=== PATIENT | female | born 1995 | race Caucasian/White ===

== ENCOUNTER → 2019-01-22 10:43 | Outpatient (CLI) | payer OTHER, SELFPAY ==
[2014-11-17 15:18] VITALS: BMI 22.4
[2019-01-22 11:18] LABS: AST(SGOT) 13 U/L (15-37); Alanine Aminotransfer ALT/SGPT 20 U/L (13-56); Anion Gap 7 (5-15); BUN 13 mg/dL (7-18); Calcium,Total 8.7 mg/dL (8.5-10.1); Chloride 105 mmol/L (98-107); Creatinine, Serum 0.72 mg/dL (0.55-1.02); EST Glomerular Filtration Rate 105 mL/min (>60); Est Glom Filt Rate - Afr Amer 127 mL/min (>60); Glucose 88 mg/dL (74-106); Potassium 3.9 mmol/L (3.5-5.1); Sodium Level 140 mmol/L (136-145)
[2019-01-22 11:40] LABS: hCG Titer Quant., Serum 198 mIU/mL (1-3)
== END ==
LOC: LAB.FUTURE 10:53 → LAB 01-23 07:21
PROVIDERS: Family Provider Internal Medicine; PCP Internal Medicine; Referring Provider Obstetrics & Gynecology; Visit Provider Obstetrics & Gynecology
DX: O02.1 Missed abortion (principal)
CPT/HCPCS: 36415; 80048; 84450; 84460; 84702; 86900; 86901

== ENCOUNTER 2022-09-27 07:00 | Inpatient (IN) | payer BC, SELFPAY ==
[2022-09-27] VITALS (32 sets, daily range): BP systolic 115–144; BP diastolic 62–96; PULSE 77–155; RESP 15–16; TEMP 36.3–37.4; O2SAT 96–99; BMI 31.6
[2022-09-27] MEDS: Lactated Ringers 1,000 ML 50 ML IV (07:25)
[2022-09-27 07:41] LABS: Absolute Lymphocyte Count 2.05 X10^3/uL (0.83-4.51); Absolute Neutrophil Count 8.7 X10^3/uL (2.0-7.7); Basophil# 0.03 X10^3/uL; Basophil% 0.3 % (0-1); Eosinophil# 0.13 X10^3/uL; Eosinophils% 1.1 % (0-5); Hematocrit 39.1 % (37-47); Lymphocyte # 2.05 X10^3/ul (0.83-4.51); Lymphocyte % 17.7 % (19-41); Mean Corp Hgb Conc 33.2 g/dL (32-36); Mean Corpuscular Hgb 29.7 pg (27.0-32.0); Mean Corpuscular Volume 89.3 fL (81-99); Monocyte# 0.65 X10^3/uL; Monocyte% 5.6 % (0-10); NRBC Flagged by Analyzer 0 % (0-5); Neutrophil # 8.67 X10^3/uL (2.7-7.7); Neutrophil % 74.6 % (47-70); Platelet Count 218 K/mm3 (150-450); RBC Distribution Width CV 12.4 % (11.6-14.6); RBC Distribution Width SD 40.5 fl (35.1-43.9); Red Blood Count 4.38 M/mm3 (4.2-5.4); White Blood Count 11.6 K/mm3 (4.4-11.0)
[2022-09-27] MEDS: Oxytocin 15 Units/NS 250ml 15 UNITS/250 ML IV.SOLN 2 UNITS IV (07:45)
[2022-09-27 08:33] LABS: Syphilis Antibodies Non-reactive
[2022-09-27] MEDS: LACTATED RINGERS 500 ML 999 ML IV (08:35)
--- NOTE | 2022-09-27 08:36 | HP.PCM.OB_ITS ---
HPI - General General Date of Admission: 09/27/22 HPI Narrative CATHI ALEGRE, is a 27 F at 40.1 weeks gestation who presents for elective induction of labor. has been uncomplicated. History of anxiety and depression and is Rubella non- immune. Maternal Data Information RICA Calculator Estimated Delivery Date Method Current WG Current Estimate 09/26/22 Manual 40w 1d Final RICA: 09/26/22 [facility] Medical History (Updated 09/27/22 @ 08:39 by Suzette Grove CNM) Anxiety Depression hemorrhage Home Medications citalopram 40 mg tablet mg PO DAILY anxiety/depression 09/27/22 [History Last Taken 09/26/22 20:00 40 mg] pantoprazole 40 mg tablet,delayed release mg PO DAILY acid reflux 09/27/22 [History Last Taken 09/27/22 05:00 40 mg] vit no.95-ferrous fumarate 28 mg-folic acid 800 mcg tablet () 1 tab PO DAILY 09/27/22 [History Last Taken 09/26/22 11:00 1 TAB] Allergy/AdvReac Type Severity Reaction Status Date / Time No Known Allergies Allergy Verified 09/27/22 07:54 Surgical History History of wisdom tooth extraction Social History Smoking Status: Former smoker History Elective abortions Hx Para 1 Spontaneous abortions Hx # Term Pregnancies Ectopic pregnancies Hx # Pregnancies Multiple births # of living children ROS Eyes Eyes: Denies blurry vision, change in vision or spots in vision ENT HEENT: Denies dizziness or headache(s) Cardiovascular Cardiovascular: Denies abdominal pain, chest pain or dyspnea Respiratory/Chest Respiratory/Chest: Denies cough, dyspnea, shortness of breath at rest or shortness of breath with exertion Gastrointestinal Gastrointestinal: Denies abdominal pain, diarrhea or vomiting Genitourinary Genitourinary: Denies change in urinary stream, difficulty urinating or dysuria Musculoskeletal Musculoskeletal: Reports none Integumentary Integumentary: Denies rash Neurologic Neurologic: Denies dizziness, headache(s), memory loss or weakness Psychiatric Psychiatric: Reports none Vital Signs Vital Signs Vital Signs: 09/27/22 07:34 09/27/22 07:34 09/27/22 07:33 Temperature Temperature Source Temporal Pulse Rate 97 Blood Pressure 135/77 H BP Systolic 135 BP Diastolic 77 Pulse Ox 09/27/22 07:33 09/27/22 08:22 09/27/22 08:22 Temperature 99.3 F H Temperature Source Pulse Rate 86 Blood Pressure 135/80 H BP Systolic 135 BP Diastolic 80 Pulse Ox 09/27/22 08:22 Temperature Temperature Source Pulse Rate Blood Pressure BP Systolic BP Diastolic Pulse Ox 97 Weight Weight: 202 lb 6.4 oz Body Mass Index (BMI) 31.6 Physical Exam Const alert, oriented x3 and no apparent distress General Appearance: cooperative Orientation / Consciousness: awake Exam Limitations: no limitations HEENT normocephalic Head and Scalp: normal to inspection Eyes General Eye: normal appearance of both eyes Neck full ROM and no lymphadenopathy Lymph Lymphatic: no lymphadenopathy noted Chest inspection of chest normal Resp normal respiratory effort, normal air movement and clear to auscultation bilaterally Effort and Inspection: able to speak in complete sentences and symmetric chest movement Cardio regular rate and regular rhythm GI normal to inspection, nondistended, normoactive bowel sounds Manual OB Exam: presentation cephalic, dilated 4, effaced 80 and station 0 Amniotic Fluid: clear amniotic fluid Back/Spine normal ROM Extremity full ROM and no calf tenderness Skin no rashes or lesions noted General Skin Exam: no breakdown Neuro oriented x3 and CN's II-XII intact bilaterally Psych mental status grossly normal and thought process normal Labs Labs Labs: Blood Type AB POSITIVE Antibody Screen Pending Hct 39.1 % (37-47) Hgb 13.0 g/dL (12.0-15.0) Syphilis Total Ab Non-reactive VZV IgG Antibody 332 index (Immune >165) GBS negative Assessment & Plan (1) 40 weeks gestation of : (2) Encounter for elective induction of labor: (3) Rubella non-immune status, antepartum: (4) Depression: (5) Anxiety: PLAN: Plan Admit to labor and delivery Routine labs Start IV and run fluids per orders GBS negative CE- 5/70/-2 AROM for moderate amount of meconium fluid- Feather Shaper notified Pitocin IV started at 2 mu/min- increase per policy Epidural when indicated Anticipate Dr. Washington notified of admission
[2022-09-27] MEDS: fentaNYL-bupivacaine (epidural) 100 ML BAG EPIDURAL (09:33)
--- NOTE | 2022-09-27 12:24 | OP.PCM_ITS ---
Assessment & Plan (1) Rubella non-immune status, antepartum: (2) Depression: (3) Anxiety: (4) (spontaneous vaginal delivery): (5) Care and examination of lactating mother: Maternal Data Information RICA Calculator Estimated Delivery Date Method Current WG Current Estimate 09/26/22 Manual 40w 1d Vaginal Delivery Maternal Presentation Maternal Presentation: Elective Induction Maternal Presentation: at 40.1 weeks for scheduled elective induction of labor. Type of Induction: Pitocin and Amniotomy Operative Information Date of Procedure: 09/27/22 Pre-Operative Diagnosis: Term gestation, induction of labor Post-Operative Diagnosis: , live female Surgery / Procedure Performed: Spontaneous Vaginal Delivery Type of Anesthesia: Epidural Drain: Coats to straight drain Estimated Blood Loss: 150 Time of Delivery: 12:10 Findings Description of Procedure: Called to patient's room for delivery. With minimal maternal effort, head delivered followed by anterior shoulder and remainder of infant body without any traction. Vigorous female placed on maternal abdomen and was attended to by nursing staff. Outside Barrel Lathe Operator in room for delivery for meconium fluid. Pitocin IV started for active management of the third stage of labor. 3 vessel cord clamped and cut after delay by FOB. Infant placed immediately skin to skin with patient. Placenta delivered spontaneously and intact. Fundus firm 2 below U. Hemostasis obtained. Vaginal sweep completed by me. Vagina and perineum intact. EBL 150 cc. APGARS 8/9. and patient bonding well at this time. Dr. Washington notified of delivery. Presentation: Vertex and FABIO Amniotic Membrane Rupture Type: Artificial Time of Membrane Rupture: 0830 Amniotic Fluid Description: Moderate meconium Placental Delivery Description: Spontaneous Placenta Disposition: [facility] Cord Vessel Description: 3 Vessels Cord Entanglement: None A Gender: Female (1 minute): 8 (5 minute): 9 Delayed Cord Clamping: Yes Post Vaginal Delivery Medications Given After Delivery: IV Pitocin Episiotomy Description: None Laceration: None Complication Complications: None
[2022-09-27] MEDS: Oxytocin 15 Units/NS 250ml 15 UNITS/250 ML IV.SOLN 83 UNITS IV (12:45)
[2022-09-27] MEDS: 0.9% Saline Lock 10 ML Syringe IV (15:50)
[2022-09-27] MEDS: Citalopram 40 MG TABLET PO (20:26)
[2022-09-28] VITALS (8 sets, daily range): BP systolic 114–146; BP diastolic 59–85; PULSE 80–89; RESP 15–16; TEMP 36.2–36.9; O2SAT 94–97
--- NOTE | 2022-09-28 07:22 | PCM.PN.OB ---
Subjective Subjective Patient seen at bedside. Ambulating and voiding without difficulty. Denies headache, dizziness, CP, or SOB. Lochia decreasing. with minimal support. Desires discharge home today. Objective Data Objective Data Vital Signs: Vital Signs Temp Pulse Resp BP Pulse Ox O2 Del Method 97.1 F L 89 15 130/83 H 96 Room Air 09/28/22 04:45 09/28/22 04:45 09/28/22 04:45 09/28/22 04:45 09/28/22 04:45 09/28/22 04:45 Oxygen Delivery Method Room Air Weight: 202 lb 6.4 oz Body Mass Index (BMI) 31.6 Intake & Output: Intake and Output for Last 24 Hours 09/26/22 09/27/22 09/28/22 23:59 23:59 23:59 Intake Total 1633.34 / 1633.34 Output Total 2200 / 2200 Balance -566.66 / -566.66 Lab / Micro Data 09/27/22 07:25 Labs: Laboratory Results - last 24 hr 09/27/22 07:25: WBC 11.6 H, RBC 4.38, Hgb 13.0, Hct 39.1, MCV 89.3, MCH 29.7, MCHC 33.2, RDW Std Deviation 40.5, RDW Coeff of Hiren 12.4, Plt Count 218, MPV 10.0, Immature Gran % (Auto) 0.700, Neut % (Auto) 74.6 H, Lymph % (Auto) 17.7 L, [place] % (Auto) 5.6, Eos % (Auto) 1.1, Baso % (Auto) 0.3, Absolute Neuts (auto) 8.7 H, Absolute Lymphs (auto) 2.05, Nucleated RBC % 0, Syphilis Total Ab Non-reactive, Blood Type AB POSITIVE, Antibody Screen NEGATIVE ROS Eyes Eyes: Denies blurry vision, change in vision or spots in vision ENT HEENT: Denies dizziness or headache(s) Cardiovascular Cardiovascular: Denies abdominal pain, chest pain or dyspnea Respiratory/Chest Respiratory/Chest: Denies cough, dyspnea, shortness of breath at rest or shortness of breath with exertion Gastrointestinal Gastrointestinal: Denies abdominal pain, diarrhea or vomiting Genitourinary Genitourinary: Denies change in urinary stream, difficulty urinating or dysuria Musculoskeletal Musculoskeletal: Reports none Integumentary Integumentary: Denies rash Neurologic Neurologic: Denies dizziness, headache(s), memory loss or weakness Physical Exam Const alert and no apparent distress General Appearance: cooperative and comfortable Exam Limitations: no limitations HEENT normocephalic Eyes General Eye: normal appearance of both eyes Neck full ROM General: normal visual inspection Chest Chest: symmetrical chest wall rise Resp normal respiratory effort and normal air movement Effort and Inspection: symmetric chest movement Auscultation: clear to auscultation bilaterally Cardio regular rate and regular rhythm GI normal to inspection, nondistended, normoactive bowel sounds Back/Spine normal ROM Extremity full ROM and no calf tenderness General Extremity: normal exam except as noted Skin no rashes or lesions noted Neuro CN's II-XII intact bilaterally Psych mental status grossly normal Assessment & Plan (1) Care and examination of lactating mother: (2) (spontaneous vaginal delivery): PLAN: Plan PPD 1 Routine care support D/C home with follow up in office
--- NOTE | 2022-09-28 07:24 | DCINST_ITS ---
Discharge Instructions Diet Discharge Diet: No restrictions Activity May resume sexual activity in: 6-8 weeks Weight Bearing Status: Weight bearing as tolerated Dressing / Incision Call your doctor if you observe: Fever of 101 or Higher, Inability to urinate, Using more than 1 pad per hour, Shortness of breath, Chest pain, Calf discomfort and Uncontrolled pain Follow Up Care Please Follow Up With: Suzette Grove CNM When: 2 weeks virtual visit/ 6 weeks in office Test Results: Test results from this visit will be discussed in further detail at your follow- up appointment, if applicable. Discharge Plan Admission Admit Date/Time: 09/27/22 07:00 Primary Reason for Your Visit: Labor and Delivery Attending Provider: Suzette Grove Primary Care Provider: Tootie Avilez Consulting Providers: Chaya Washington Discharge Orders/Prescriptions Prescriptions: Continued citalopram 40 mg tablet PO DAILY Patient Comments: TAKE 1 TABLET BY MOUTH ONCE DAILY AT BEDTIME PNV cmb#95-ferrous fumarate-FA [] 28 mg iron- 800 mcg tablet 1 tab PO DAILY Discontinued pantoprazole 40 mg tablet,delayed release (DR/EC) PO DAILY Patient Comments: TAKE 1 TABLET BY MOUTH ONCE DAILY, 30 MINUTES BEFORE BREAKFAST ON AN EMPTY STOMACH Referrals / Follow Up: Tootie Avilez MD [Primary Care Provider] - Disposition Disposition (needs filled in before D/C Order can be placed): Home, Self Care
--- NOTE | 2022-09-28 09:58 | CASEMGMT ---
Social Work Assessment Labor and Delivery Unit Patient Address:[address] [place] [address] Phone number: [phone] Date of Referral: 09/27/22 Time of Referral:? 1523 Referred By: Suzette Grove Date of Intervention: ??09/28/22 Time of Intervention:?0900 Reason for Referral:? mental health, anxiety and depression Sw completed chart review and acknowledges social work consult entered due to maternal mental health history positive for anxiety and depression. Sw presented to bedside, introduced self to mother and father of baby (MOB- Lori) and (FOGeorge- Blade). Sw explained reason for social work involvement, completed psychosocial assessment and provided information and literature for parents to review. History obtained from: medical records, MOB and FOB. ? Household composition: SYLVAIN states that currently residing in the family home is TOMASA NARAYAN, their older son (Nik, 11 years old) and now baby girl Patient's parent/guardian status:? SYLVAIN is 27 year old, female who is to TOMASA. MOB states that they are high school sweethearts and have been together for 12 or 13 years. Parents now have two children together. When meeting with SYLVAIN privately, she denied domestic violence or intimate partner violence. MOB states that TOMASA is a good support person for her. ? Medical History: SYLVAIN is 2, para 1 now 2. SYLVAIN received routine care during with [facility]. SYLVAIN delivered baby via vaginal delivery. Baby girl, Zuhair Pugh, was born on on 09/[birth year]/22 weighing 6lb and 9oz. Zuhair's apgars were 8 and 9 at one and five minutes of life respectfully. MOB states that she and baby are doing well. SYLVAIN is and states that it is going well. Educational Status:?Both parents graduated from high school, both deny any learning challenges/ difficulties. MOB states that neither parent has college education. Financial Status: Both parents are gainfully employed outside of the home. FOB states that he works in construction and does not get any time off following delivery of baby. MOB states that she works for an [employer] and is able to network support specialist. MOB states that she is able to take off 6 weeks for maternity leave. Supplies:??Parents report they have obtained everything they need for baby including: safe sleep space, car seat, clothes, diapers, wipes and a breast pump. Childcare/Caregiver(s):? SYLVAIN states that because she is able to network support specialist she is able to provide care to baby. Other helpers include paternal and maternal grandparents. SYLVAIN states that their 11 year old son is being cared for by paternal grandparents at this time. Transportation:?Both parents have reliable transportation at this time. No barriers identified. ? Programs/Agencies Involved: Parents deny being linked to any community agencies for financial support. MOB states that she is not connected to [facility]. ?? Children Services/Legal Issues:??? Parents deny history with Children Services involvement. No issues or concerns warranting referral at this time. Behavioral Health Issues: ??Mental Health History:??FOGeorge denies mental health history. SYLVAIN reports that she was diagnosed with anxiety and depression when she was 13 years old. MOB states that she is prescribed citalopram by her primary care doctor. SYLVAIN states that she feels as though her medication has helped and attributes that as to why she has not struggled with anxiety or depression for quite some time. Sw asked FOB to leave room so MOB could complete the [place] Depression Screen. FOB left room respectfully and without issue. MOB score on the [place] was a 6. Sw provided support and education. Sw encouraged MOB to get connected to mental health supports should her score increase. MOB expressed understanding. Substance Use History:?SYLVAIN denies substance use prior to or during .? Family History:?No known mental health or substance use history for either side of family. ? Drug Screens: ?No urine screens observed in chart review. Family/Social Stressors:? MOB denies stressors or concerns at this time. Support Systems: Parents state that both sides of grandparents are their biggest supports. Depression/Shaken Baby/Safe Sleeping:? Sw provided literature and education on signs and symptoms of baby blues and post depression. Sw explained to MOB her susceptibility of experiencing baby blues or is higher due to her mental health history. Sw provided education on shaken baby prevention and ABCs of safe sleep. MOB and FOB expressed understanding of these issues and did not have any questions. ASSESSMENT: While meeting with parents to complete psychosocial assessment, MOB was observed to be in hospital bed holding baby and tending to her lovingly. FOB was sitting in chair at bedside, both parents were receptive to sw involvement and support. MOB mental health history was discussed with sw. MOB states that she has good supports in place and indicates that FOB is a good support for her. MOB expressed understanding of signs and symptoms of baby blues and post depression/ anxiety to be mindful of. PLAN:? MOB and baby to be discharged today when medically ready. ?No other services requested or indicated. Trish Guzman, MARKETING SUPPORT COORDINATOR, [employer]
== END 2022-09-28 13:45 | disposition home or self-care (01) | DRG 807 ==
PROVIDERS: Obstetrics & Gynecology; Admitting Provider Advanced Practice Midwife; PCP Internal Medicine; Referring Provider Advanced Practice Midwife; Visit Provider Advanced Practice Midwife
DX: O48.0 Post-term pregnancy (principal); Z37.0 Single live birth; O99.344 Other mental disorders complicating childbirth; F32.A Depression, unspecified; F41.9 Anxiety disorder, unspecified; Z87.891 Personal history of nicotine dependence; Z3A.40 40 weeks gestation of pregnancy; O77.0 Labor and delivery complicated by meconium in amniotic fluid; Z28.39 Other underimmunization status
CPT/HCPCS: 59025; 59050; 85025; 86780; 86850; 86900; 86901; 99221; J7120; A4216; G0378